=== PATIENT | female | born 1970 | race Caucasian/White ===

== ENCOUNTER 2018-11-09 09:09 | Emergency (ER) | payer OTHER ==
[2018-11-09 09:17] VITALS: BP 125/72; PULSE 97; TEMP 98.4; BMI 28.4
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
== END 2018-11-09 10:18 | disposition home or self-care (01) ==
LOC: JERFT 09:09
DX: S00.93XA Contusion of unspecified part of head, initial encounter (principal); V43.62XA Car passenger injured in collision with other type car in traffic accident, initial encounter; Y93.89 Activity, other specified; Y92.410 Unspecified street and highway as the place of occurrence of the external cause; F17.210 Nicotine dependence, cigarettes, uncomplicated
CPT/HCPCS: 99281-25